=== PATIENT | female | born 1995 | race Two or more races ===

== ENCOUNTER 2017-08-15 13:45 | Emergency (ER) | payer OTHER ==
[2017-08-15 13:49] VITALS: BP 112/76; PULSE 98; TEMP 97.4; BMI 33.1
--- NOTE | 2017-08-15 15:57 | PDOC ---
History of Present Illness - General Chief Complaint: Lightheaded Stated Complaint: DIZZINESS (13 WKS ) Time Seen by Provider: 08/15/17 15:56 - History of Present Illness Initial Comments: 08/15/17 16:09 Ms. Cooley is a 22 yo self reported A1 who presents c/o a 2 week history of dizzyness with lightheaded feeling. She says this has been more or less constant and she cannot relate it to anything specific. She spoke with her OB/ BLOOD BANK ATTENDANT this morning who recommended she come in for evaluation. The patient denies chest pain, shortness of breath, headache and dizziness. Denies fever, chills, nausea, vomit, diarrhea and constipation. Denies dysuria, frequency, urgency and hematuria. Allergies: NKDA Past History - Past Medical History Allergies/Adverse Reactions: Allergies Allergy/AdvReac Type Severity Reaction Status Date / Time No Known Allergies Allergy Verified 08/15/17 13:46 Home Medications: Ambulatory Orders No Home Medications 0 dose .ROUTE UTDICT 01/09/14 Anemia: No Asthma: No Cancer: No Cardiac Disorders: No COPD: No Diabetes: No HTN: No Seizures: No Thyroid Disease: No - Reproductive History Cervical CA: No Dysfunctional Uterine Bleeding: No Ectopic : No Endometrial CA: No Polycystic Ovaries: No Tubal Ligation: No - Suicide/Smoking/Psychosocial Hx Smoking Status: No Smoking History: Never smoked Have you smoked in the past 12 months: No Number of Cigarettes Smoked Daily: 0 Information on smoking cessation initiated: No Hx Alcohol Use: Yes (SOCIAL) Drug/Substance Use Hx: No Substance Use Type: None Hx Substance Use Treatment: No Review of Systems - Review of Systems Comments:: 08/15/17 18:17 GENERAL/CONSTITUTIONAL: No fever or chills. No weakness. HEAD, EYES, EARS, NOSE AND THROAT: No change in vision. No ear pain or discharge. No sore throat. CARDIOVASCULAR: No chest pain or shortness of breath RESPIRATORY: No cough, wheezing, or hemoptysis. GASTROINTESTINAL: No nausea, vomiting, diarrhea or constipation. GENITOURINARY: No dysuria, frequency, or change in urination. MUSCULOSKELETAL: No joint or muscle swelling or pain. No neck or back pain. SKIN: No rash NEUROLOGIC: +Dizziness as described above ENDOCRINE: No increased thirst. No abnormal weight change HEMATOLOGIC/LYMPHATIC: No anemia, easy bleeding, or history of blood clots. ALLERGIC/IMMUNOLOGIC: No hives or skin allergy. *Physical Exam - Vital Signs Last Vital Signs Temp Pulse Resp BP Pulse Ox 97.4 F L 98 H 18 112/76 100 08/15/17 13:47 08/15/17 13:47 08/15/17 13:47 08/15/17 13:47 08/15/17 13:47 - Physical Exam Comments: 08/15/17 16:22 GENERAL: Awake, alert, and fully oriented, in no acute distress HEAD: No signs of trauma, normocephalic, atraumatic EYES: PERRLA, EOMI, sclera anicteric, conjunctiva clear ENT: Auricles normal inspection, hearing grossly normal, nares patent, oropharynx clear without exudates. Moist mucosa NECK: Normal ROM, supple, no lymphadenopathy, JVD, or masses LUNGS: No distress, speaks full sentences, clear to auscultation bilaterally HEART: Regular rate and rhythm, normal S1 and S2, no murmurs, rubs or gallops, peripheral pulses normal and equal bilaterally. ABDOMEN: Soft, nontender, normoactive bowel sounds. No guarding, no rebound. No masses EXTREMITIES: Normal inspection, Normal range of motion, no edema. No clubbing or cyanosis. NEUROLOGICAL: Cranial nerves II through XII grossly intact. Normal speech, normal gait, no focal sensorimotor deficits SKIN: Warm, Dry, normal turgor, no rashes or lesions noted. ED Treatment Course - LABORATORY CBC & Chemistry Diagram: 08/15/17 16:27 08/15/17 16:27 Medical Decision Making - Medical Decision Making 08/15/17 18:57 Patient reports symptomatic relief with 1 L NS. UTI treated with oral keflex and Rx sent to patient's pharmacy. Will d/c with instructions to f/u with OB/ BLOOD BANK ATTENDANT - patient verbalized she has an appt scheduled for and will f/u then. *DC/Admit/Observation/Transfer Diagnosis at time of Disposition: UTI (urinary tract infection) Qualifiers: Urinary tract infection type: site unspecified Hematuria presence: with hematuria Qualified Code(s): N39.0 - Urinary tract infection, site not specified - Discharge Dispostion Disposition: HOME - Referrals - Patient Instructions Printed Discharge Instructions: DI for Urinary Tract Infection (UTI) Additional Instructions: Please follow-up with FAIRGROUND OPERATOR as discussed at your appointment on . Please return if any increase or return of dizziness, nausea, vomiting, or other concerning symptoms. - Post Discharge Activity
[2017-08-15 16:54] LABS: BASOPHIL 0.3 % (0-2.0); EOSINOPHIL 1.5 % (0-4.5); MCH 27.3 pg (25.7-33.7); MCHC 33.8 g/dl (32.0-36.0); MEAN CELL VOLUME 80.8 fl (80-96); MEAN PLT VOLUME 8.2 fl (7.5-11.1); NEUTROPHILS 68.7 % (42.8-82.8); PLATELET COUNT 232 K/MM3 (134-434); RDW 13.8 % (11.6-15.6); WHITE BLOOD COUNT 10.2 K/mm3 (4.0-10.0)
[2017-08-15 16:55] LABS: URINE APPEARANCE CLOUDY; URINE BILIRUBIN NEGATIVE (NEGATIVE); URINE BLOOD NEGATIVE (NEGATIVE); URINE COLOR YELLOW; URINE GLUCOSE (UA) NEGATIVE (NEGATIVE); URINE KETONE NEGATIVE (NEGATIVE); URINE NITRITE NEGATIVE (NEGATIVE); URINE PROTEIN NEGATIVE (NEGATIVE); URINE UROBILINOGEN NEGATIVE mg/dL (0.2-1.0)
[2017-08-15 17:02] LABS: URINE LEUK ESTERASE 3+ (NEGATIVE)
[2017-08-15 17:03] LABS: URINE BACTERIA RARE /hpf (NONE SEEN); URINE HYALINE CAST 6 /lpf; URINE MUCUS RARE; URINE RBC 4 /hpf (0-3); URINE WBC 13 /hpf (3-5)
[2017-08-15 17:28] LABS: ANION GAP 6 (8-16); CO2 26 mmol/L (21-32); CREATININE 0.5 mg/dL (0.55-1.02); GLUCOSE,RANDOM 77 mg/dL (74-106); SGOT/AST 7 U/L (15-37); SGPT/ALT 16 U/L (12-78)
[2017-08-15 17:30] LABS: ALK PHOS 55 U/L (45-117); BILIRUBIN,TOTAL 0.2 mg/dL (0.2-1.0); TOT PROT 6.8 g/dl (6.4-8.2)
[2017-08-15] MEDS ORDERED: SODIUM CHLORIDE 1,000 ML IV STA (18:13)
[2017-08-15] MEDS ORDERED: CEPHALEXIN MONOHYDRATE 500 MG CAPSULE (UD) PO ONE (18:13)
[2017-08-15] MEDS ORDERED: CEPHALEXIN MONOHYDRATE 250 MG CAPSULE (FP) ONE (18:21)
--- NOTE | 2017-08-15 19:08 | PDOC ---
Attending Attestation - Resident Resident Name: Rudi Sauer - ED Attending Attestation I have performed the following: I have examined & evaluated the patient, The case was reviewed & discussed with the resident, I agree w/resident's findings & plan, Exceptions are as noted - HPI HPI: 08/15/17 19:06 22 yo has had JONES,dizziness and fatigue for 2 weeks - Physicial Exam PE: 08/15/17 19:08 wnwd 22 yo pregnanat female has c/o dizziness for several weeks head ncat neck no bruits,supple lungs cta b/l cvs [id number] abd nontender,gravid extremities no rashes,no edema neuro axox3,ambulatory no ataxia,no extremity weakness skin warm.,dry - Medical Decision Making 08/15/17 19:12 pt fells much better -no focal neuro deficits,no chest pain,no sob,no pelvic cramping,no vag bleeding she already has an appt with diet supervisor this
[2017-08-15 21:13] LABS: URINE LEUK ESTERASE 3+ (NEGATIVE)
== END 2017-08-15 19:24 | disposition home or self-care (01) ==
LOC: JER 13:45
PROC: 3E0337Z Introduction of Electrolytic and Water Balance Substance into Peripheral Vein, Percutaneous Approach (ICD-10-PCS; principal; 2017-08-15)
DX: O26.891 Other specified pregnancy related conditions, first trimester (principal); Z3A.13 13 weeks gestation of pregnancy; N39.0 Urinary tract infection, site not specified
CPT/HCPCS: 36415; 80053; 81003; 81015; 85025; 99283-25

== ENCOUNTER 2018-02-14 08:55 | Inpatient (IN) | payer OTHER ==
[2018-02-14 09:32] VITALS: BMI 35.2
[2018-02-14] MEDS ORDERED: PROMETHAZINE HCL 25 MG/1 ML VIAL IVPUSH ONE (09:34)
[2018-02-14] MEDS ORDERED: BUTORPHANOL TARTRATE 1 MG/ML VIAL IVPB ONE (09:34)
[2018-02-14] MEDS ORDERED: DINOPROSTONE 10 MG VAGINAL SUPPOSITORY VG ONE (09:36)
--- NOTE | 2018-02-14 09:38 | HP ---
Past Medical History - Primary Care Physician PCP:: Flory Rodríguez - Admission Chief Complaint: Induction of labor History Source: Patient - Past Medical History ...: 4 ...Para: 1 ...Term: 1 ...: 0 ...Spon : 0 ...Induced : 2 ...Multiple Gestation: 0 ...LMP: 04/15/17 ... Weeks Gestation by Dates: 43.4 ...EDC by Dates: 01/20/18 ...EDC by Sono: 02/20/18 - Past Surgical History Past Surgical History: Yes: None - Smoking History Smoking history: Never smoked Have you smoked in the past 12 months: No Aproximately how many cigarettes per day: 0 - Alcohol/Substance Use Hx Alcohol Use: No History of Substance Use: reports: None Home Medications - Allergies Allergies/Adverse Reactions: Allergies Allergy/AdvReac Type Severity Reaction Status Date / Time No Known Allergies Allergy Verified 02/14/18 09:21 - Home Medications Home Medications: Ambulatory Orders Tablet 1 tab PO DAILY 02/14/18 Ibuprofen [Motrin -] 600 mg PO QID #28 tablet 02/15/18 Physical Exam - Maternity Vital Signs: Vital Signs Temperature 98.8 F 02/14/18 09:25 Pulse Rate 108 H 02/14/18 09:25 Respiratory Rate 20 02/14/18 09:25 Blood Pressure 114/68 02/14/18 09:25 O2 Sat by Pulse Oximetry (%) Constitutional: Yes: Well Nourished, No Distress Neck: Yes: WNL Cardiovascular: Yes: WNL - Abdominal Exam/OB Number of Fetuses: Single Presentation: Vertex Intensity: Moderate Category: I Decelerations: None - Vaginal Exam/OB Speculum Exam: No Dilatation (cm): 2 cm Amniotic Membrane Status: Intact Presentation: Vertex/Position - Physical Exam Extremities: Yes: WNL Edema: No Integumentary: Yes: WNL Psychiatric: Yes: WNL, Alert, Oriented Hemorrhage Risk Assessment - Risk Factors Risk Score: 0 Risk Level: Low Risk Assessment/Plan Induction of labor Cat1 IUP at 39 weeks Plan Cervidil
[2018-02-14 09:45] LABS: BASO % 0.4 % (0-2.0); HEMATOCRIT 32.7 % (32.4-45.2); LYMPH % 22.9 % (8-40); MCH 27.4 pg (25.7-33.7); MCHC 33.7 g/dl (32.0-36.0); MEAN CELL VOLUME 81.3 fl (80-96); MONO % 6.8 % (3.8-10.2); NEUT % 67.9 % (42.8-82.8); PLATELET COUNT 178 K/MM3 (134-434); RBC 4.02 M/mm3 (3.60-5.2); RDW 15.6 % (11.6-15.6)
[2018-02-14 10:11] LABS: INR 0.96 (0.82-1.09); PROTHROMBIN TIME (PATIENT) 10.9 SEC (9.7-13.0)
[2018-02-14 10:14] LABS: ACTIVATED PTT 27.7 SECONDS (26.9-34.4)
[2018-02-14 10:20] LABS: CHLORIDE 106 mmol/L (98-107); POTASSIUM 4.1 mmol/L (3.5-5.1); SODIUM 137 mmol/L (136-145)
[2018-02-14 10:41] LABS: ANION GAP 10 (8-16); BLOOD UREA NITROGEN 9 mg/dL (7-18); CALCIUM 8.3 mg/dL (8.5-10.1); CO2 21 mmol/L (21-32); CREATININE 0.5 mg/dL (0.55-1.02); GLUCOSE,RANDOM 70 mg/dL (74-106)
[2018-02-14] MEDS ORDERED: AMPICILLIN - 2 GM in SODIUM CHLORIDE 100 ML IVPB ONE (11:14)
[2018-02-14] MEDS ORDERED: TUBERCULIN PPD 5 TU/0.1ML SYRINGE (IN PATIENT USE ONLY) ID ONE (17:45)
[2018-02-14] MEDS: AMPICILLIN - 1 GM in SODIUM CHLORIDE 100 ML IVPB SCH (21:30)
[2018-02-15] MEDS: ELECTROLYTE-148 SOLN 1,000 ML IV SCH ×4 (01:00→14:05)
[2018-02-15] MEDS: AMPICILLIN - 1 GM in SODIUM CHLORIDE 100 ML IVPB SCH ×3 (01:30→11:30)
[2018-02-15] MEDS ORDERED: AMPICILLIN SODIUM 2 GM VIAL ONE (03:17)
[2018-02-15] MEDS ORDERED: TUBERCULIN PPD 5 TU/0.1ML SYRINGE (IN PATIENT USE ONLY) ID ONE (05:00)
[2018-02-15] MEDS ORDERED: OXYTOCIN 30 UNITS in 0.9% NS 30 UNIT/500 ML INFUS.BAG IVPB SCH (05:00)
--- NOTE | 2018-02-15 05:01 | PN ---
Ante-Partal Exam - Subjective Subjective: Pt doing well irregular contractions Vital Signs: Vital Signs Temperature 98.6 F 02/15/18 01:45 Pulse Rate 86 02/15/18 01:45 Respiratory Rate 18 02/15/18 01:45 Blood Pressure 107/71 02/15/18 01:45 O2 Sat by Pulse Oximetry (%) Bleeding: No Headache: No Visual changes: No Right upper quadrant pain: No - Contractions Contractions: Yes Regularity: Irregular Monitor Mode: External - Exam during Labor Variability: Moderate Heart Rate Location: [facility] [place] Category: I Monitor Accelerations: Present Monitor Decelerations: None Exam: Vaginal Dilatation (cm): 2 Amniotic Membrane Status: Intact Presentation: Vertex Station: -1 - Intrapartum Hemorrhage Risk Risk Score: 0 Risk Level: Low Risk - Assessment/Plan Assessment/Plan: Irregular contractions Cat 1 39 week plan Pitocin augmentation
--- NOTE | 2018-02-15 05:15 | LDN ---
Oxytocin Pre-Use Checklist Date and Time completed: 02/15/18 0515 Physician order on chart: No Current history and physical on chart: No Indication for induction is documented: No record on chart: No Pelvis is documented by physician to be clinically adequate: No Estimated weight within past week (clinical or sono): Less than 4250 grams in a diabetic woman Gestational age is documented: Yes Consent signed: Yes Physician with privileges: is aware of the induction, is readily available Status of the cervix is assessed and documented: Yes Presentation is assessed and documented: Yes Assessment completed and includes: A minimum of 30 minutes of monitoring is required prior to start, At least 2 accelerations (15bpm x 15sec) in 30 minutes are present, Adequate variability, No late decelerations in past 30 minutes
[2018-02-15] MEDS ORDERED: BUTORPHANOL TARTRATE 1 MG/ML VIAL ONE ×2 (05:26)
[2018-02-15] MEDS ORDERED: OXYTOCIN 30 UNITS in 0.9% NS 30 UNIT/500 ML INFUS.BAG IVPB ONE (05:27)
[2018-02-15] MEDS ORDERED: PROMETHAZINE HCL 25 MG/1 ML VIAL ONE (05:27)
[2018-02-15] MEDS ORDERED: AMPICILLIN SODIUM 1 GM VIAL ONE (07:24)
[2018-02-15] MEDS ORDERED: BUTORPHANOL TARTRATE 1 MG/ML VIAL IVPUSH PRN (10:15)
[2018-02-15] MEDS ORDERED: PROMETHAZINE HCL 25 MG/1 ML VIAL IVPB PRN (10:16)
[2018-02-15] MEDS ORDERED: OXYTOCIN 20 UNITS in 0.9% NS 20 UNIT/1,000 ML INFUS.BAG IV ONE (11:35)
[2018-02-15] MEDS ORDERED: BENZOCAINE 28 GM HEMORRHOIDAL OINTMENT TP PRN ×2 (11:59→13:43)
[2018-02-15] MEDS ORDERED: METHYLERGONOVINE MALEATE 0.2 MG/1 ML AMP IM PRN ×2 (11:59→13:43)
[2018-02-15] MEDS ORDERED: ACETAMINOPHEN 325 MG TABLET (FP) PO PRN (11:59)
[2018-02-15] MEDS ORDERED: BENZOCAINE 20% 57 GM BOTTLE TP PRN ×2 (11:59→13:43)
[2018-02-15] MEDS ORDERED: WITCH HAZEL 50% (TUCKS) 40 PAD/JAR PAD TP PRN ×2 (11:59→13:43)
[2018-02-15] MEDS ORDERED: BISACODYL 10 MG SUPP.RECT RC PRN ×2 (11:59→13:43)
[2018-02-15] MEDS ORDERED: OXYTOCIN 20 UNITS in 0.9% NS 20 UNIT/1,000 ML INFUS.BAG IV SCH (12:00)
[2018-02-15 12:26] LABS: VENOUS PC02 48.6 mmHg (38-52); VENOUS PH 7.3 (7.32-7.42); VENOUS PO2 29.5 mmHg (28-48)
[2018-02-15] MEDS ORDERED: IBUPROFEN 600 MG TABLET (FP) PO PRN (13:43)
[2018-02-15] MEDS ORDERED: OXYTOCIN 20 UNITS in 0.9% NS 1,000 ML IV SCH (13:45)
--- NOTE | 2018-02-15 13:46 | PN ---
Delivery - Delivery Vaginal Delivery: No Problems Episiotomy/Laceration: None EBL (cc): 250 Delivery, Single - Stages of Labor Placenta: Yes: Spontaneous - Condition of Infant Director [facility]/Before School Present: No Gender: Female Position: OA - [place] Feeding Plan Initial Plan: Elected not to breastfeed exclusively throughout hospitalization
[2018-02-15] MEDS: IBUPROFEN 600 MG TABLET (FP) PO PRN ×2 (14:00→17:46)
[2018-02-15] MEDS ORDERED: IBUPROFEN 600 MG TABLET (FP) PO ONE (14:13)
[2018-02-15] MEDS: ACETAMINOPHEN 325 MG TABLET (FP) PO PRN (17:45)
[2018-02-16 09:05] LABS: BASO % 0.3 % (0-2.0); EOS % 1.5 % (0-4.5); HEMATOCRIT 28.8 % (32.4-45.2); HEMOGLOBIN 9.6 GM/dL (10.7-15.3); LYMPH % 23.7 % (8-40); MCH 27.4 pg (25.7-33.7); MCHC 33.4 g/dl (32.0-36.0); MEAN CELL VOLUME 81.9 fl (80-96); MEAN PLT VOLUME 9.4 fl (7.5-11.1); MONO % 5.8 % (3.8-10.2); NEUT % 68.7 % (42.8-82.8); PLATELET COUNT 151 K/MM3 (134-434); RBC 3.52 M/mm3 (3.60-5.2); RDW 15.5 % (11.6-15.6); WHITE BLOOD COUNT 11.2 K/mm3 (4.0-10.0)
--- NOTE | 2018-02-16 09:40 | PN ---
Post Progress Note - Subjective Subjective: Patient sleeping upon my entrance to the room upon 2 attempts. No issues overnight per nursing staff. Post Day: 1 Vital Signs: Vital Signs Temperature 98.4 F 02/15/18 22:00 Pulse Rate 87 02/15/18 22:00 Respiratory Rate 20 02/15/18 22:00 Blood Pressure 124/67 02/15/18 22:00 O2 Sat by Pulse Oximetry (%) 98 02/15/18 13:49 Uterus: Yes: Fundus Firm, Fundus below umbilicus Abdomen/GI: Yes: Abdomen soft Lochia: Yes: Rubra Lochia, amount: Moderate (per nursing) Extremities: Yes: Calves non-tender Perineum: Yes: Intact Activity: Ambulating - Labs Labs: CBC WBC 8.0 K/mm3 (4.0-10.0) 02/14/18 09:30 RBC 4.02 M/mm3 (3.60-5.2) 02/14/18 09:30 Hgb 11.0 GM/dL (10.7-15.3) 02/14/18 09:30 Hct 32.7 % (32.4-45.2) 02/14/18 09:30 MCV 81.3 fl (80-96) 02/14/18 09:30 MCH 27.4 pg (25.7-33.7) 02/14/18 09:30 MCHC 33.7 g/dl (32.0-36.0) 02/14/18 09:30 RDW 15.6 % (11.6-15.6) D 02/14/18 09:30 Plt Count 178 K/MM3 (134-434) D 02/14/18 09:30 MPV 9.0 fl (7.5-11.1) 02/14/18 09:30 Absolute Neuts (auto) 5.4 # 02/14/18 09:30 Neutrophils % 67.9 % (42.8-82.8) 02/14/18 09:30 Lymphocytes % 22.9 % (8-40) 02/14/18 09:30 Monocytes % 6.8 % (3.8-10.2) 02/14/18 09:30 Eosinophils % 2.0 % (0-4.5) 02/14/18 09:30 Basophils % 0.4 % (0-2.0) 02/14/18 09:30 Nucleated RBC % 0 % (0-0) 02/14/18 09:30 Other Findings, Remarks: physical exam per nursing staff Problem List - Problems (1) Vaginal delivery Code(s): O80 - ENCOUNTER FOR FULL-TERM UNCOMPLICATED DELIVERY Assessment/Plan day 1 after normal doing well regular diet encourage ambulation hgb 9.6, pt asymptomatic - continue PNV routine care discharge home in a.m.
[2018-02-16] MEDS ORDERED: DIPHTH,PERTUSS(ACELL),TET 0.5 ML DISP.SYRIN IM ONE (10:00)
[2018-02-16] MEDS: ACETAMINOPHEN 325 MG TABLET (FP) PO PRN ×2 (14:00→21:23)
[2018-02-16] MEDS: IBUPROFEN 600 MG TABLET (FP) PO PRN ×2 (14:01→21:23)
[2018-02-16] MEDS ORDERED: SENNOSIDES/DOCUSATE COMBO (SENNA PLUS) TABLET (UD) PO PRN ×2 (22:00)
[2018-02-17] MEDS: IBUPROFEN 600 MG TABLET (FP) PO PRN ×2 (00:24→10:06)
[2018-02-17] MEDS: ACETAMINOPHEN 325 MG TABLET (FP) PO PRN ×2 (00:24→10:06)
--- NOTE | 2018-02-17 10:08 | DS ---
Physical Exam-COMMUNITY SERVICE OFFICER COORDINATOR Vital Signs: Vital Signs Temperature 98.5 F 02/16/18 21:00 Pulse Rate 94 H 02/16/18 21:00 Respiratory Rate 20 02/16/18 21:00 Blood Pressure 123/78 02/16/18 21:00 O2 Sat by Pulse Oximetry (%) 98 02/15/18 13:49 Constitutional: Yes: Well Nourished, No Distress, Calm Eyes: Yes: EOM Intact HENT: Yes: Normocephalic Neck: Yes: Trachea Midline Respiratory: Yes: WNL Gastrointestinal: Yes: Normal Bowel Sounds, Soft Vaginal Exam: Yes: Bleeding (normal post lochia rubra) Edema: LLE: 1+, RLE: 1+ Neurological: Yes: Alert, Oriented Labs: CBC, BMP 02/16/18 06:00 02/14/18 09:30 Delivery - Delivery Vaginal Delivery: No Problems Type of Anesthesia: None Episiotomy/Laceration: None EBL (cc): 250 Delivery, Single - Stages of Labor Date 1st Stage Initiatied: 02/15/18 Time 1st Stage Initiated: 05:20 Date 2nd Stage Initiated: 02/15/18 Time 2nd Stage Initiated: 11:15 Date of Delivery: 02/15/18 Time of Delivery: 11:38 Time Placenta Delivered: 11:40 Placenta: Yes: Spontaneous - Condition of Fuel Technician/Chief Lifestyle Officer Present: No Gender: Female Weight: 6 lb 5 oz Position: OA Total Hours ROM (Hrs/Mins): 2 hrs 38 mins - 1 Minute Total Score: 7 5 Minutes Total Score: 9 - Feeding Plan Initial Plan: Elected not to breastfeed exclusively throughout hospitalization Discharge Summary Reason For Visit: LABOR INDUCTION Current Active Problems Vaginal delivery (Acute) Procedures: Principal: Normal Spontaneous vaginal delivery Condition: Good - Instructions Diet, Activity, Other Instructions: Physical activity Resume your normal everyday activity as tolerated no heavy lifting or exercise until seen by your surgeon. You may walk unlimited aris of and climb stairs. You may resume driving the car when you feel safe and comfortable behind the wheel. No sexual activity as instructed. Wound care If you have a bandage, leave it on, and keep dry for 48-72 hours. After that time discard the outer bandage. If they are tapes on the skin under the out of bandage leave them in place. They will peel off in the next 7 to 10 days. Do Not Peel them off. You may shower the day after surgery. If there are tapes present on the skin, you may shower over them. Diet There are no dietary restrictions. Eat healthy, high-fiber foods. Drink 6 to 8 glasses of liquid each day. This will assist in keeping your bowels are regular. Pain management You may take Tylenol or acetaminophen or Ibuprofen (for example, Motrin, Advil etc.) from my pain prescription medication is ordered should be taken as prescribed for moderate to severe pain. Call MD for any of the following: Severe pain not relieved by medication Fever of 101 or higher Excessive bleeding or drainage on dressing Inability to urinate Disposition: HOME - Home Medications Comprehensive Discharge Medication List: Ambulatory Orders Tablet 1 tab PO DAILY 02/14/18 Ibuprofen [Motrin -] 600 mg PO QID #28 tablet 02/15/18
[2018-02-17 10:50] VITALS: BP 94/57; PULSE 97; TEMP 98.4
== END 2018-02-17 11:30 | disposition home or self-care (01) | DRG 560 ==
LOC: JLDR 08:55 → J3W 20:42 → JLDR 02-15 03:36 → J3W 02-15 14:40
PROVIDERS: ADMIT Obstetrics & Gynecology; ATTEND Obstetrics & Gynecology
PROC: 10E0XZZ Delivery of Products of Conception, External Approach (ICD-10-PCS; principal; 2018-02-15)
DX: O80 Encounter for full-term uncomplicated delivery (principal); Z3A.39 39 weeks gestation of pregnancy; Z37.0 Single live birth
CPT/HCPCS: 36415; 59409; 80048; 82803; 85025; 85610; 85730; 86593; 86850; 86900; 86901; 90715